=== PATIENT | female | born 1990 | race Caucasian/White ===

== ENCOUNTER 2020-05-10 15:15 | Inpatient (IN) | payer MEDICAID, SELFPAY ==
[2020-05-10] VITALS (57 sets, daily range): BP systolic 105–155; BP diastolic 53–87; PULSE 83–127; RESP 18; TEMP 36.4–37.2; O2SAT 97–100; BMI 45.8
[2020-05-10] MEDS: lactated ringers 1,000 ML 999 ML IV (15:28)
[2020-05-10 15:34] LABS: Basophils % 0.2 %; Eosinophils % 0.4 %; Hematocrit 37.3 % (37.0-47.0); Hemoglobin 12.2 g/dL (11.5-15.3); Lymphocytes % 8.3 %; Mean Corpuscular HGB Conc 32.7 g/dL (30.0-36.0); Mean Corpuscular Hemoglobin 29.1 pg (28.0-34.0); Mean Platelet Volume 11.3 fL (7.4-10.4); Monocytes # 0.4 10^3/uL (0.2-0.9); Monocytes % 3.4 %; Neutrophils # 9.95 10^3/uL (1.8-7.7); Neutrophils % 87.3 %; Nucleated Red Blood Cells % 0 %; Platelet Count 230 10^3/cmm (130-400); Red Blood Count 4.19 10^6/uL (4.1-5.3); Red Cell Distribution Width 14.3 % (12.1-15.1); White Blood Count 11.4 10^3/uL (4.0-10.0)
--- NOTE | 2020-05-10 16:10 | ANES.PREANE2 ---
Pre-Anesthetic Assessment Pre-Anesthetic Assessment: Height/Weight: Height 1.65 m Weight 124.924 kg Temp Pulse Resp BP Pulse Ox 97.9 F 107 H 18 116/66 99 05/10/20 16:05 05/10/20 16:47 05/10/20 16:33 05/10/20 16:47 05/10/20 16:46 Preop Diagnosis: IUP Proposed Procedure: labor epidural Was Beta Tabitha taken within 24 hours: N/A Was Clonidine taken within 24 hours: N/A Social: Social History: No alcohol and No tobacco Exam: Pre-Anes Outpt Exam: alert, oriented x 3, clear to auscultation bilaterally and regular rate & rhythm Airway: Submandibular: WNL Cervical ROM: WNL MP: 1 History/ROS: No significant history except as noted Pulmonary: Pulmonary: None reported CV/HEM: CV/HEM: None reported : : None reported Hepatic: Hepatic: None reported GI: GI: None reported Metabolic: Metabolic: None reported Musc/skel: Musc/skel: None reported Neuropsych: Neuropsych: Anxiety Anesthetic Plan: ASA status: 1 Anesthesia: Anesthesia Evaluation Risk of > 500 ml blood loss (7ml/kg in children): No Meds/Allergies Current Medications: Current Medications Generic Name Dose Route Start Last Admin Trade Name Freq PRN Reason Stop Dose Admin Lactated Ringer's 1,000 mls @ 999 m ls/hr 05/10/20 14:37 05/10/20 15:28 Lactated Ringers IV 999 mls/hr .Q1H1M PRN Administration See label comment s PFSH Anesthesia PFSH: Social History (Updated 11/14/19 @ 18:32 by Evelia Sarah LPN) Smoking and tobacco status: never smoked Alcohol intake: never Female Reproductive History: : 3 Data Anesthesia CBC & Chem 7: 05/10/20 15:15 Other Labs: Laboratory Results - last 48 hr 05/10/20 15:15 WBC 11.4 H RBC 4.19 Hgb 12.2 Hct 37.3 MCV 89.0 MCH 29.1 MCHC 32.7 RDW 14.3 Plt Count 230 MPV 11.3 H Neut % (Auto) 87.3 Lymph % (Auto) 8.3 [place] % (Auto) 3.4 Eos % (Auto) 0.4 Baso % (Auto) 0.2 Neut # (Auto) 9.95 H Lymph # (Auto) 1.0 [place] # (Auto) 0.4 Eos # (Auto) 0.0 Baso # (Auto) 0.0 Nucleated RBC % (auto) 0 Nucleated RBCs # 0.0 Cardiac Studies: No Data to Display
--- NOTE | 2020-05-10 16:49 | ANES.PROC ---
Anesthesia Procedures Procedure/Date: 05/10/20 Epidural: Time Out Performed: Yes Consents Signed: Procedure Consent Consent: requested by attending/covering physician Lumbar Level: L4-L5 Epidural position: sitting Epidural procedure: sterile prep of area, 1% lidocaine to numb the area, 18 g needle, negative for paresthesia passed, neg for paresthesia, test dose given, 1.5% xylocaine 1:200k epi (4ml), placed PCEA, no systemic response, sterile dressing applied, L.U.D. no apparent complications and 0.2% Ropiavacaine @ mls/hr (13)
[2020-05-10] MEDS: dextrose 5%-lactated ringers 1,000 ML 125 ML IV (16:53)
[2020-05-10] MEDS: oxytocin 30 UNIT/500 ML BAG IV (19:55)
--- NOTE | 2020-05-10 23:05 | PM.DELIVERY ---
Delivery Note: Date of delivery: May 10, 2020 Pre-delivery diagnoses: 3 para 2-0-0-2 with an estimated stational age of 39 weeks and 5 days presenting to the hospital active labor Post-delivery diagnoses: Status post spontaneous vaginal delivery Procedure: Spontaneous vaginal delivery Op report anesthesia: Epidural Delivering Physician: Corona Coy Estimated blood loss (mL): 150 Pre-Delivery Course: Patient had an unremarkable . She was GBS negative. Covid negative. Glucose screen was negative. Her blood type is O+. The remainder of her labs are within normal limits. Back to the hospital in active labor. Her amniotic sac was intact. She began having contractions about 2 hours prior to do presentation to the hospital. She received an epidural. An amniotomy was performed. She progressed to complete without difficulty. Delivery: DELIVERY: The patient progressed to complete without difficulty. She delivered a male with a weight of 8 pounds 0 ounces with Apgars of 8, 9. The baby was delivered from the RIC position and placed on the mother's abdomen. The mouth and nose were then suctioned. The cord was then clamped and cut 1 minute after delivery. There was no nuchal cord. There was light meconium. The placenta and 3 vessel cord were delivered intact shortly thereafter. The perineum and vaginal vault were carefully examined. No lacerations were noted. Both the mother and the baby were in stable condition. Post-Delivery Status: Good A&P Assessment and plan (1) 39 weeks gestation of : Status: Acute (2) Spontaneous vaginal delivery: Status: Acute Coding Level of Care Code Acute Transport Company Manager for Chg Fwd Diagnoses 39 weeks gestation of Z3A.39 Spontaneous vaginal delivery O80
[2020-05-11] VITALS (11 sets, daily range): BP systolic 103–139; BP diastolic 58–87; PULSE 71–118; RESP 16–18; TEMP 36.6–36.7
[2020-05-11] MEDS: ibuprofen 800 mg tablet PO ×3 (07:35→22:22)
--- NOTE | 2020-05-11 08:07 | PM.OBGYDC ---
Discharge Providers HAZARDOUS SUBSTANCES ENGINEER Date of Admission: 05/10/20 15:15 Date of Discharge: 05/11/20 Attending Provider at Admission: Corona Coy MD Attending Provider at Discharge: Corona Coy MD Primary Care Provider: Abran Childs Jr, MD Diagnoses at Discharge Discharge Diagnosis (1) 39 weeks gestation of : Status: Acute (2) Spontaneous vaginal delivery: Status: Acute Reason for Visit Reason for Visit: contractions Hospital Course Hospital Course The patient presented to the hospital in active labor. An epidural was placed. An amniotomy was performed. She progressed to complete and had an unremarkable delivery of a healthy appearing term . Her course was unremarkable. Her bleeding was within normal limits. She breast-fed well without difficulty. There were no concerns or problems. Information Peripartum Data: Delivery Method: Vaginal Physical Exam Narrative: EXAM NARRATIVE: The patient is alert. She appears comfortable. Her heart has a regular rate and rhythm with no murmurs appreciated. Lungs are clear to auscultation bilaterally. Her fundus is firm and below the umbilicus. Urinary Catheter Management^: Tovar: Cath Placed During This Visit: yes Reason for Continuing Indwelling Catheter: Accurate Measurement of Urinary Output in Critically Ill Patients Urinary Catheter Date of Insertion: 05/10/20 Urinary Catheter Time of Insertion: 17:00 Discharge Data Data Completed and Pending: Pending at discharge Category Date Time Status Hemagram Timed Lab 05/11/20 11:10 Uncollected Labs from last 24 hours 05/10/20 15:15 WBC 11.4 H RBC 4.19 Hgb 12.2 Hct 37.3 MCV 89.0 MCH 29.1 MCHC 32.7 RDW 14.3 Plt Count 230 MPV 11.3 H Neut % (Auto) 87.3 Lymph % (Auto) 8.3 [place] % (Auto) 3.4 Eos % (Auto) 0.4 Baso % (Auto) 0.2 Neut # (Auto) 9.95 H Lymph # (Auto) 1.0 [place] # (Auto) 0.4 Eos # (Auto) 0.0 Baso # (Auto) 0.0 Nucleated RBC % (a uto) 0 Nucleated RBCs # 0.0 Vitals: Last Vital Signs Temp 98.4 F 05/10/20 21:52 Pulse 71 05/11/20 04:56 Resp 18 05/11/20 01:38 BP 107/59 05/11/20 04:56 Pulse Ox 100 05/10/20 17:01 Discharge Plan Discharge Patient Disposition: Home Condition: Stable Prescriptions: New ibuprofen 800 mg Tablet 800 mg PO TID Qty: 45 RF: 0 Continued prenat.vits,skylar,[id number]-dgcp-wnipt Tablet 1 tab PO DAILY RF: 0 Discontinued cephalexin 500 mg capsule 500 mg PO QID 7 Days Qty: 28 RF: 0 omeprazole 20 mg Capsule,Delayed Release(Dr/Ec) 20 mg PO BID RF: 0 Discharge Orders: Discharge Order (Routine); Ordered 05/11/20 Ordered By: Corona Coy Referrals: Corona Coy MD [Physician] - 6 Weeks Discharge Diet: Usual diet Discharge Activity: Limit activity as instructed Discharge Attestations HAZARDOUS SUBSTANCES ENGINEER Time Spent in Discharge Care*: less than 30 min Coding Level of Care Code Acute Market Research Assistant for Chg Fwd Diagnoses 39 weeks gestation of Z3A.39 Spontaneous vaginal delivery O80
[2020-05-11] MEDS: benzocaine-menthol 78 gm Canister 1 SPRAY TOPICAL (09:35)
[2020-05-11] MEDS: docusate sodium 100 mg Capsule PO ×2 (09:35→19:39)
[2020-05-11] MEDS: prenatal vitamin Capsule 1 CAP PO (09:35)
[2020-05-11 15:44] LABS: Hematocrit 34.3 % (37.0-47.0); Hemoglobin 11.1 g/dL (11.5-15.3); Mean Corpuscular HGB Conc 32.4 g/dL (30.0-36.0); Mean Corpuscular Hemoglobin 28.8 pg (28.0-34.0); Mean Corpuscular Volume 89.1 fL (81-99); Mean Platelet Volume 11.3 fL (7.4-10.4); Platelet Count 197 10^3/cmm (130-400); Red Blood Count 3.85 10^6/uL (4.1-5.3); Red Cell Distribution Width 14.5 % (12.1-15.1); White Blood Count 11.2 10^3/uL (4.0-10.0)
[2020-05-11 19:33] LABS: Glucose Point of Care 97 mg/dL (70-110)
[2020-05-12 00:30] VITALS: BP 120/68; PULSE 74; TEMP 36.7
[2020-05-12 00:40] VITALS: BP 120/68; PULSE 74; RESP 16; TEMP 36.7
== END 2020-05-12 00:34 | disposition home or self-care (01) | DRG 807 ==
LOC: OPOB 15:16 → OBGYN 15:16
PROVIDERS: Admitting Provider Family Medicine; Family Provider Family Medicine; PCP Family Medicine; Visit Provider Family Medicine
DX: O77.0 Labor and delivery complicated by meconium in amniotic fluid (principal); Z37.0 Single live birth; Z3A.39 39 weeks gestation of pregnancy
CPT/HCPCS: 12345; 36415; 36416; 51702; 59409; 82962; 85025; 85027; 98960; 99211; J2795

== ENCOUNTER → 2021-10-13 18:24 | Outpatient (BNVA) | payer MEDICAID, SELFPAY | PROVIDERS: Family Provider Family Medicine; PCP Family Medicine; Visit Provider Registered Nurse Neonatal Intensive Care | DX: Z20.822 Contact with and (suspected) exposure to COVID-19 (principal); U07.1 COVID-19 | CPT/HCPCS: 87426 ==

== ENCOUNTER 2023-01-28 19:07 | Inpatient (IN) | payer MEDICAID, SELFPAY ==
[2023-01-28 19:00] VITALS: BMI 50.4
[2023-01-28 19:21] VITALS: BP 137/60; PULSE 100; TEMP 36.5
[2023-01-28] MEDS: dextrose 5%-lactated ringers 1,000 ML 125 ML IV (20:38)
[2023-01-28] MEDS: ampicillin 2,000 MG in sodium chloride 0.9% (plus) 50 ML 100 MG IV (20:38)
[2023-01-28 20:49] LABS: Basophils % 0.3 %; Eosinophils # 0.1 10^3/uL (0.0-0.8); Eosinophils % 0.6 %; Hematocrit 35.8 % (36-47); Lymphocytes # 1.8 10^3/uL (0.8-4.8); Lymphocytes % 16.4 %; Mean Corpuscular HGB Conc 32.4 g/dL (30-55); Mean Corpuscular Hemoglobin 27.9 pg (27-33); Mean Corpuscular Volume 86.1 fl (85-98); Mean Platelet Volume 11.7 fL (7.4-10.4); Monocytes # 0.5 10^3/uL (0.2-0.9); Monocytes % 4.5 %; Neutrophils # 8.65 10^3/uL (1.8-7.7); Neutrophils % 77.8 %; Nucleated Red Blood Cells % 0 %; Platelet Count 253 10^3/cmm (157-399); Red Blood Count 4.16 10^6/uL (3.85-5.65); White Blood Count 11.11 10^3/uL (3.29-11.43)
[2023-01-28 20:54] VITALS: BP 138/92; PULSE 91
[2023-01-28] MEDS: miSOPROStol 100 mcg tablet 25 MCG VAGINAL (21:04)
[2023-01-28 21:15] VITALS: BP 141/92; PULSE 90
[2023-01-28 21:34] VITALS: BP 136/81; PULSE 88
[2023-01-28 22:53] VITALS: BP 126/79; PULSE 93
[2023-01-28 23:09] VITALS: BP 123/86; PULSE 91
[2023-01-29] VITALS (106 sets, daily range): BP systolic 92–150; BP diastolic 47–89; PULSE 84–130; RESP 16–17; TEMP 36.1–36.8; O2SAT 97–100; BMI 50.4
[2023-01-29] MEDS: ampicillin 1,000 MG in sodium chloride 0.9% (plus) 50 ML 100 MG IV ×4 (00:24→12:24)
[2023-01-29] MEDS: calcium carbonate 500 mg Chew Tablet 1000 MG PO (01:57)
[2023-01-29] MEDS: miSOPROStol 100 mcg tablet 25 MCG VAGINAL (02:56)
[2023-01-29] MEDS: lactated ringers 1,000 ML 999 ML IV ×2 (08:32→09:37)
[2023-01-29] MEDS: lanolin oint 7 gm 1 APPLIC TOPICAL (08:34)
[2023-01-29] MEDS: ROPivacaine syringe 100 MG/50 ML SYRINGE 10 MG EPIDURAL ×2 (09:38→12:24)
--- NOTE | 2023-01-29 10:48 | P.ANESASSM_ITS ---
Pre-Anesthetic Assessment Height/Weight: Height 1.65 m Weight 137.438 kg Temp Pulse BP Pulse Ox O2 Del Method 97.3 F L 105 H 124/75 100 Room Air 01/29/23 10:29 01/29/23 10:43 01/29/23 10:42 01/29/23 10:43 01/28/23 19:40 Familial anesthetic complications: none Was Beta Tabitha taken within 24 hours: N/A Was Clonidine taken within 24 hours: N/A Social No alcohol and No tobacco Exam alert, oriented x 3, clear to auscultation bilaterally and regular rate & rhythm Airway Submandibular: within normal limits Cervical ROM: within normal limits Mallampati: Class II Dentition: full Metabolic Morbid Obesity Anesthetic Plan ASA status: 2 Anesthesia: Regional (specify below) (Labor epidural) Medications/Allergies Home Medications Medication Instructions Recorded Confirmed Last Taken Type prenat.vits,skylar,psc-kxfd-skaut 1 tab PO DAILY 11/14/19 05/12/22 05/09/20 21:00 History ibuprofen 800 mg tablet 800 mg PO TID #45 tabs 05/11/20 05/12/22 Unknown Rx escitalopram oxalate 10 mg tablet 10 mg PO DAILY 10/13/21 05/12/22 Unknown History (Lexapro) amoxicillin 875 mg-potassium 1 tab PO BID 7 days #14 tabs 05/12/22 05/12/22 Unknown Rx clavulanate 125 mg tablet Allergies Allergy/AdvReac Type Severity Reaction Status Date / Time No Known Allergies Allergy Verified 05/12/22 13:00 Current Medications Generic Name Dose Route Start Last Admin Trade Name Claudio PRN Reason Stop Dose Admin Calcium Carbonate 1,000 mg 01/28/23 19:40 01/29/23 01:57 Calcium Carbonate 500 Mg Chew Tablet PO 1,000 mg Q4H PRN Administration Heartburn/Indigestion (Use 1st) Dextrose/Lactated Ringer's 1,000 mls @ 125 mls/hr 01/28/23 19:45 01/29/23 08:25 Dextrose 5%-Lactated Ringers IV Infused .Q8H MILIND Infusion Ampicillin Sodium 1,000 mg/ 50 mls @ 100 mls/hr 01/28/23 23:45 01/29/23 08:34 Sodium Chloride IV Infused Q4H MILIND Infusion Protocol Lactated Ringer's 1,000 mls @ 999 mls/hr 01/29/23 08:21 01/29/23 09:37 Lactated Ringers IV 999 mls/hr .Q1H1M PRN Administration See label comments Ropivacaine 100 mg in 50 mls @ 10 mls/hr 01/29/23 08:30 01/29/23 09:38 Naropin Syringe EPIDURAL 10 mls/hr .Q5H MILIND Administration Lanolin 1 applic 01/28/23 19:40 01/29/23 08:34 Lanolin Oint 7 Gm TOPICAL 1 applic PRN PRN Administration DRYNESS PFSH Anesthesia Social History (Updated 11/14/19 @ 18:32 by Evelia Sarah LPN) Smoking and tobacco/nicotine status: never used tobacco/nicotine Alcohol intake: never Substance/Drug Use: never Female Reproductive History : 4 Data Anesthesia 01/28/23 20:30 Short CBC 01/28/23 Range/Units 20:30 WBC 11.11 (3.29-11.43) 10^3/uL Hgb 11.60 (11.27-16.99) g/dL Hct 35.8 L (36-47) % MCV 86.1 (85-98) fl Plt Count 253 (157-399) 10^3/cmm Neut % (Auto) 77.8 % Neut # (Auto) 8.65 H (1.8-7.7) 10^3/uL Cardiac Studies: 2 No Data to Display Anesthesia Procedures Epidural Time Out Performed: Yes Consents Signed: Procedure Consent Consent: requested by attending/covering physician, from patient, risks and benefits reviewed and patient agrees to proceed Lumbar Level: L3-L4 Epidural position: sitting Epidural procedure: sterile prep of area, 1% lidocaine to numb the area, 18 g needle, neg for paresthesia, test dose given, 0.2% Ropivacaine bolus ml, placed PCEA, no systemic response, sterile dressing applied and 0.2% Ropiavacaine @ mls/hr (10) Additional Comments: KARLA at 6cm, cath at 11cm, 5mls 2% lido PF
[2023-01-29] MEDS: dextrose 5%-lactated ringers 1,000 ML 125 ML IV (11:15)
[2023-01-29] MEDS: oxytocin 30 UNIT/500 ML BAG 600 UNIT IV (14:40)
--- NOTE | 2023-01-29 14:51 | PM.OPHPUD ---
Labor & Delivery H&P Update Date of Procedure: January 29, 2023 Date H&P Performed: 01/27/23 Changes to previous documentation: No changes. Presenting to hospital for induction due to macrosomia per ultrasound Admission Diagnosis: 32-year-old -0-0-3 female at 39 weeks estimated gestational age presenting for induction due to presumed macrosomia Planned procedure: Spontaneous vaginal delivery Other information: The patient is a pleasant 30-week female presenting for induction due to baby measuring 2 weeks ahead. Otherwise, she has an unremarkable . Her lab works have also been unremarkable. Her blood type is O+. Her antibody screen was negative. Her glucose screen was 104. She was GBS positive. The remainder infectious disease profile was within normal limits.
--- NOTE | 2023-01-29 14:51 | PM.DELIVERY ---
Delivery Note: Date of delivery: January 29, 2023 Pre-delivery diagnoses: 32-year-old 4 para 3-0-0-3 at 39 weeks estimated gestational age Post-delivery diagnoses: Status post spontaneous vaginal delivery Procedure: Spontaneous vaginal delivery Delivering Physician: Corona Coy Estimated blood loss (mL): 150 Delivery: DELIVERY: The patient progressed to complete without difficulty. She delivered a male with a weight of 8 pounds 10 ounces with Apgars of 8, 9. The baby was delivered from the RIC position and placed on the mother's abdomen. The cord was then clamped and cut. There was a nuchal cord x 1 which was easily reduced prior to delivery of the body. There was no meconium. The placenta and 3 vessel cord were delivered intact shortly thereafter. The perineum and vaginal vault were carefully examined. No lacerations were noted. Both the mother and the baby were in stable condition. A&P Assessment and plan (1) 39 weeks gestation of : I anticipate routine care. She plans to breast-feed. (2) Spontaneous vaginal delivery: Coding Level of Care Code Acute Code for Chg Fwd Diagnoses 39 weeks gestation of Z3A.39 Spontaneous vaginal delivery O80
--- NOTE | 2023-01-29 16:27 | ANE.PACU2 ---
Inpatient post-anesthesia follow up: Airway intact: Yes Vital signs: Temperature 98.1 F Pulse Rate 105 Respiratory Rate 16 Blood Pressure 119/61 Pulse Oximetry 100 Oxygen Delivery Me thod Room Air Oxygen Flow Rate Fraction of Inspir ed Oxygen Hydration adequate: Yes Nausea and vomiting: No Pain level: 2 Mental status: Baseline
[2023-01-29] MEDS: HYDROcodone-acetaminophen 5-325 mg Tablet PO (17:15)
[2023-01-29] MEDS: benzocaine-menthol 78 gm Canister 1 SPRAY TOPICAL (17:16)
[2023-01-29] MEDS: docusate sodium 100 mg Capsule PO (17:16)
--- NOTE | 2023-01-29 17:25 | PC.NURSE ---
Pt up to bathroom with RN and at side. Pt ambulated well. Pt void large amount. Grace care perfomed. Underwear, gown, and pad changed. Bed linens changed. Pt back to bed, began feeling light headed. Blood pressure obtained. IV fluids restarted. Pt feeling better after laying back in bed. Elmo given for back pain.
--- NOTE | 2023-01-29 19:15 | PC.NURSE ---
pt ambulated to OB9. oriented to room/call light. proud parent pack and feeding log discussed. pt up to bathroom, voided. cammie care by pt, then back to bed without difficulty.
[2023-01-29] MEDS: ibuprofen 800 mg tablet PO (20:36)
[2023-01-30 00:20] VITALS: BP 129/81; PULSE 104; RESP 16; TEMP 36.9
[2023-01-30] MEDS: HYDROcodone-acetaminophen 5-325 mg Tablet PO ×2 (01:24→11:36)
[2023-01-30 02:59] LABS: Hematocrit 32.6 % (36-47); Mean Corpuscular HGB Conc 32.2 g/dL (30-55); Mean Corpuscular Hemoglobin 27.9 pg (27-33); Mean Corpuscular Volume 86.5 fl (85-98); Mean Platelet Volume 11.7 fL (7.4-10.4); Platelet Count 218 10^3/cmm (157-399); Red Blood Count 3.77 10^6/uL (3.85-5.65); Red Cell Distribution Width 15.4 % (12.1-15.1); White Blood Count 11.62 10^3/uL (3.29-11.43)
[2023-01-30 05:00] VITALS: BP 144/89; PULSE 99; RESP 16; TEMP 36.7
--- NOTE | 2023-01-30 08:04 | PM.OBGYDC ---
Discharge Providers PRODUCT MANAGEMENT MANAGER Date of Admission: 01/28/23 19:07 Date of Discharge: 01/30/23 Attending Provider at Admission: Corona Coy MD Attending Provider at Discharge: Corona Coy MD Primary Care Provider: Corona Coy MD Diagnoses at Discharge Discharge Diagnosis (1) 39 weeks gestation of : Status: Acute (2) Spontaneous vaginal delivery: Status: Acute Reason for Visit Reason for Visit: Induction Hospital Course Hospital Course The patient presented to the hospital for induction because of concerns regarding macrosomia. She was placed on Cytotec 25 mcg x 2. An epidural was placed. An amniotomy was performed. She progressed to complete without difficulty. She had an unremarkable vaginal delivery of a healthy male infant. Her course was also been unremarkable. She has breast-fed well. Her pain is been well-controlled. Her bleeding has been within normal limits. Information Peripartum Data: Delivery Method: Vaginal Physical Exam Narrative: The patient is alert. She appears comfortable. Her heart has a regular rate and rhythm with no murmurs appreciated. Lungs are clear to auscultation bilaterally. Her fundus is firm and below the umbilicus. Urinary Catheter Management: Tovar Latex: Cath Placed During This Visit: yes Urinary Catheter Date of Insertion: 01/29/23 Urinary Catheter Time of Insertion: 10:34 Discharge Data Studies Completed and Pending Laboratory Results WBC 11.62 10^3/uL (3.29-11.43) H 01/30/23 02:54 RBC 3.77 10^6/uL (3.85-5.65) L 01/30/23 02:54 Hgb 10.50 g/dL (11.27-16.99) L 01/30/23 02:54 Hct 32.6 % (36-47) L 01/30/23 02:54 MCV 86.5 fl (85-98) 01/30/23 02:54 MCH 27.9 pg (27-33) 01/30/23 02:54 MCHC 32.2 g/dL (30-55) 01/30/23 02:54 RDW 15.4 % (12.1-15.1) H 01/30/23 02:54 Plt Count 218 10^3/cmm (157-399) 01/30/23 02:54 MPV 11.7 fL (7.4-10.4) H 01/30/23 02:54 Neut % (Auto) 77.8 % 01/28/23 20:30 Lymph % (Auto) 16.4 % 01/28/23 20:30 [place] % (Auto) 4.5 % 01/28/23 20:30 Eos % (Auto) 0.6 % 01/28/23 20:30 Baso % (Auto) 0.3 % 01/28/23 20:30 Neut # (Auto) 8.65 10^3/uL (1.8-7.7) H 01/28/23 20:30 Lymph # (Auto) 1.8 10^3/uL (0.8-4.8) 01/28/23 20:30 [place] # (Auto) 0.5 10^3/uL (0.2-0.9) 01/28/23 20:30 Eos # (Auto) 0.1 10^3/uL (0.0-0.8) 01/28/23 20:30 Baso # (Auto) 0.0 10^3/uL (0.0-0.1) 01/28/23 20:30 Nucleated RBC % (auto) 0 % 01/28/23 20:30 Nucleated RBCs # 0.0 /100WBC 01/28/23 20:30 Vitals Last Vital Signs Temp 98.0 F 01/30/23 05:00 Pulse 99 01/30/23 05:00 Resp 16 01/30/23 05:00 BP 144/89 01/30/23 05:00 Pulse Ox 97 01/29/23 20:35 O2 Del Method Room Air 01/29/23 20:35 Results Labs OB ([facility]): Obstetrics US 10/21/22 Hct 32.6 % (36-47) L 01/30/23 Hgb 10.50 g/dL (11.27-16.99) L 01/30/23 Plt Count 218 10^3/cmm (157-399) 01/30/23 Discharge Plan Discharge Patient Disposition: Home Condition: Stable Prescriptions: New ibuprofen 800 mg Tablet 800 mg PO TID Qty: 45 0RF Continued prenat.vits,skylar,cyj-dnwg-buruz Tablet 1 tab PO DAILY escitalopram oxalate [Lexapro] 10 mg tablet 10 mg PO DAILY Discontinued amoxicillin-pot clavulanate 875-125 mg tablet 1 tab PO BID 7 Days Qty: 14 0RF ibuprofen 800 mg Tablet 800 mg PO TID Qty: 45 0RF Discharge Orders: Discharge Order (Routine); Ordered 01/30/23 Ordered By: Corona Coy Referrals: Corona Coy MD [Primary Care Provider] - 6 Weeks Discharge Diet: Usual diet Discharge Activity: Limit activity as instructed Patient Instructions: Opioid Safety Discharge Attestations PRODUCT MANAGEMENT MANAGER Time Spent in Discharge Care*: less than 30 min Coding Level of Care Code Acute Code for Chg Fwd Diagnoses 39 weeks gestation of Z3A.39 Spontaneous vaginal delivery O80
[2023-01-30] MEDS: ibuprofen 800 mg tablet PO ×2 (09:18→15:17)
[2023-01-30] MEDS: docusate sodium 100 mg Capsule PO (09:18)
[2023-01-30] MEDS: prenatal vitamin Capsule 1 CAP PO (09:18)
[2023-01-30 09:21] VITALS: BP 120/83; PULSE 92; RESP 17; TEMP 36.8
[2023-01-30 15:20] VITALS: BP 134/88; PULSE 99; RESP 17; TEMP 36.8
[2023-01-30 15:45] VITALS: BP 134/88; PULSE 99; RESP 17; TEMP 36.8
== END 2023-01-30 15:45 | disposition home or self-care (01) | DRG 807 ==
PROVIDERS: Admitting Provider Family Medicine; PCP Family Medicine; Visit Provider Family Medicine
DX: O36.63X0 Maternal care for excessive fetal growth, third trimester, not applicable or unspecified (principal); Z37.0 Single live birth; Z3A.39 39 weeks gestation of pregnancy; O99.824 Streptococcus B carrier state complicating childbirth; O69.81X0 Labor and delivery complicated by cord around neck, without compression, not applicable or unspecified
CPT/HCPCS: 36415; 51702; 59025; 59409; 85025; 85027; 99211; J0290; J2590; J2795; J7120; J7121

== ENCOUNTER 2024-01-07 12:46 | Outpatient (CLI) | payer MEDICAID, SELFPAY ==
--- NOTE | 2024-01-07 12:48 | CT_ITS ---
WS: [id number] CT ABDOMEN AND PELVIS WITH CONTRAST HISTORY: ABDOMINAL PAIN TECHNIQUE: Imaging performed of the abdomen and pelvis with IV contrast. Single phase imaging of the abdomen. Coronal and sagittal reformats are submitted. All CT scans at [facility] use at [address] one of these dose optimization techniques: automated exposure control; mA and/or kV adjustment per patient size (includes targeted exams where dose is matched to clinical indication); or iterative re construction. IV CONTRAST: Omnipaque 350; 100 mL IV. Oral contrast: Yes. DLP: 1163.77 mGy.cm COMPARISON: None available. Lower thorax: Lung bases are clear. Heart is normal size. No hiatal hernia. Liver/biliary system: Normal size with no intrahepatic dilatation. Gallbladder: Mildly contracted gallbladder. No adjacent inflammation. Pancreas: Normal size pancreas and pancreatic duct. No adjacent inflammation. Spleen: Normal size spleen. No mass or infarct. Adrenal glands: Normal. Right kidney: Normal. Left kidney: Normal. Aorta: Normal. Lymphadenopathy: None. Free fluid: None. GI tract: Stomach is markedly distended with food products and oral contrast. No small bowel obstruct ion. Normal appendix. No diverticulosis or diverticulitis. No obstruction. Abdominal wall: Fat containing umbilical hernia. Pelvis: No free fluid or adenopathy within the pelvis. Normal size anteverted uterus with an IUD whic h is in good position as seen by CT. No adnexal masses. Bones: Unremarkable. CT/CT abdomen pelvis w con* [id number] IMPRESSION: 1. No acute abdominal or pelvic abnormalities are identified. 2. Gallbladder is contracted without adjacent inflammation. This may be due to an postprandial state. 3. No GI tract obstruction. 4. No ascites or adenopathy. 5. IUD in good position.
[2024-01-07] MEDS: iohexol 350 mg/mL 500 mL Btl (per mL) PO (13:08)
[2024-01-07] MEDS: iohexol 350 mg/mL 500 mL Btl (per mL) IV (13:58)
== END 2024-01-07 12:47 | disposition home or self-care (01) ==
LOC: RAD 12:47
PROVIDERS: PCP Family Medicine; Visit Provider Family Medicine
DX: R10.9 Unspecified abdominal pain (principal)
CPT/HCPCS: 74177